=== PATIENT | male | born 1955 | race Caucasian/White ===

== ENCOUNTER 2020-10-02 08:46 | Outpatient (CLI) | payer MEDICARE, SELFPAY ==
[2020-10-02 09:16] LABS: Hematocrit 48.7 % (42.0-52.0); Hemoglobin 16.6 g/dL (14.0-18.0); Mean Corpuscular HGB Conc 34.1 g/dl (32-36); Mean Corpuscular Hemoglobin 30.5 pg (26-34); Mean Corpuscular Volume 89.5 fl (80-100); Mean Platelet Volume 9.2 fl (7.4-10.4); Platelet Count Result 250 k/mm3 (150-375); Red Blood Count 5.44 M/mm3 (4.6-6.20); Red Cell Distribution Width 11.9 % (11.5-14.5); White Blood Count 7.4 K/mm3 (4.5-10.0)
[2020-10-02 09:39] LABS: Alanine Aminotransferase 33 U/L (4-50); Albumin Level 4.4 g/dL (3.5-5.1); Alkaline Phosphatase 77 U/L (38-126); Anion Gap 7 mmol/L (8-16); Aspartate Amino Transferase 37 U/L (17-59); Bilirubin,Total 0.8 mg/dL (0.2-1.3); Blood Urea Nitrogen 17 mg/dL (9-20); Calcium 9.7 mg/dL (8.4-10.2); Carbon Dioxide 35 mmol/L (22-30); Chloride 101 mmol/L (98-107); Estimated Glomerular Filt Rate > 60; Glucose 100 mg/dL (75-110); Potassium 4.2 mmol/L (3.4-5.0); Sodium 143 mmol/L (137-145)
[2020-10-02 10:41] LABS: Folic Acid > 20.0 ng/mL (2.76->20)
== END 2020-10-02 08:47 | disposition home or self-care (01) ==
LOC: ANHLAB 08:49
PROVIDERS: PCP Internal Medicine; Visit Provider Internal Medicine
DX: R53.83 Other fatigue (principal); E53.8 Deficiency of other specified B group vitamins; E78.00 Pure hypercholesterolemia, unspecified; Z12.5 Encounter for screening for malignant neoplasm of prostate
CPT/HCPCS: 36415; 80053; 82607; 82746; 84443; 85027

== ENCOUNTER 2021-10-08 09:38 | Outpatient (CLI) | payer MEDICARE, SELFPAY ==
[2021-10-08 10:12] LABS: Basophils Absolute Auto 0.1 K/mm3 (0.0-0.1); Basophils Percent Auto 0.8 % (0.2-1.2); Eosinophils Absolute Auto 0.2 K/mm3 (0-0.3); Eosinophils Percent Auto 3.3 % (0-4.4); Hematocrit 49.3 % (42.0-52.0); Hemoglobin 16.7 g/dL (14.0-18.0); Immature Granulocyte Absolute 0.03 K/mm3 (0.00-0.031); Immature Granulocyte Percent A 0.5 % (0-0.5); Lymphocytes Absolute Auto 1.94 K/mm3 (0.9-3.2); Lymphocytes Percent Auto 30.7 % (18.3-44.2); Mean Corpuscular HGB Conc 33.9 g/dl (32-36); Mean Corpuscular Hemoglobin 30.9 pg (26-34); Mean Corpuscular Volume 91.1 fl (80-100); Mean Platelet Volume 9.1 fl (7.4-10.4); Monocytes Absolute Auto 0.4 K/mm3 (0.1-0.6); Monocytes Percent Auto 6.7 % (2.6-8.5); Neutrophils Absolute Auto 3.7 K/mm3 (1.3-6.7); Platelet Count Result 238 k/mm3 (150-375); Red Blood Count 5.41 M/mm3 (4.6-6.20); Red Cell Distribution Width 12.1 % (11.5-14.5); White Blood Count 6.3 K/mm3 (4.5-10.0)
[2021-10-08 10:28] LABS: Alanine Aminotransferase 23 U/L (4-50); Albumin Level 4.6 g/dL (3.5-5.1); Alkaline Phosphatase 89 U/L (38-126); Anion Gap 8 mmol/L (8-16); Aspartate Amino Transferase 23 U/L (17-59); Bilirubin,Total 0.5 mg/dL (0.2-1.3); Blood Urea Nitrogen 12 mg/dL (9-20); Calcium 9.5 mg/dL (8.4-10.2); Carbon Dioxide 31 mmol/L (22-30); Chloride 104 mmol/L (98-107); Cholesterol 155 mg/dL (0-200); Estimated Glomerular Filt Rate > 60; Glucose 109 mg/dL (65-110); HDL Direct 44 mg/dL; Potassium 3.7 mmol/L (3.4-5.0); Sodium 143 mmol/L (137-145); Triglycerides 81 mg/dL (<150)
[2021-10-08 10:40] LABS: Hemoglobin A1C 5.5 % (<5.7); LDL Cholesterol Direct 100 mg/dL
[2021-10-08 11:33] LABS: Folic Acid 12.7 ng/mL (2.76->20)
== END 2021-10-08 09:39 | disposition home or self-care (01) ==
PROVIDERS: PCP Internal Medicine; Visit Provider Internal Medicine
DX: R53.83 Other fatigue (principal); R73.9 Hyperglycemia, unspecified; Z12.5 Encounter for screening for malignant neoplasm of prostate; E78.00 Pure hypercholesterolemia, unspecified
CPT/HCPCS: 36415; 80053; 80061; 82607; 82746; 83036; 84153; 84443; 85025; G0103

== ENCOUNTER 2021-10-29 12:48 | Outpatient (CLI) | payer MEDICARE, SELFPAY ==
--- NOTE | ~2021-10-29 | CT_ITS ---
EXAMINATION: CT lung screening DATE: 10/29/2021 13:04 INDICATION: Personal history of nicotine dependence TECHNIQUE: Computed tomography (CT) of the chest was performed without intravenous contrast. The dose -length product was 94.16 mGy-cm. Automated exposure control and iterative reconstruction technique w ere employed. COMPARISON: CT dated 02/02/2018 FINDINGS: There is evidence for chronic granulomatous disease of the mediastinum, samantha, lung parenchy ma, liver and spleen. Heart size normal. No thoracic lymphadenopathy. No significant pleural or peric ardial effusion. Mild emphysema. There is a 2 mm left upper lobe nodule, not clearly calcified, image 37 there is a 4 mm lingular nodule, image 68, unchanged. There is a 3 mm left lower lobe nodule, daya ge 70. No focal consolidation. No endobronchial lesions. No pneumothorax. Mild thoracic spondylosis w ith accentuated kyphosis. IMPRESSION: 1. Lung-RADS category 2: Benign appearance or behavior. Continue annual screening with noncontrast lo w-dose chest CT in 12 months. Reviewed, dictated and finalized at location B. TER COACH DRIVER IMPRESSION: 1. Lung-RADS category 2: Benign appearance or behavior. Continue annual screeni ng with noncontrast low-dose chest CT in 12 months.
== END 2021-10-29 12:49 | disposition home or self-care (01) ==
PROVIDERS: PCP Internal Medicine; Visit Provider Internal Medicine
DX: Z87.891 Personal history of nicotine dependence (principal)
CPT/HCPCS: 71271

== ENCOUNTER 2022-01-15 23:10 | Emergency (ER) | payer MEDICARE, SELFPAY ==
--- NOTE | ~2022-01-15 | XR_ITS ---
EXAMINATION: XR chest 2V DATE: 01/15/2022 23:56 INDICATION: Left rib pain. Fall. TECHNIQUE: Frontal and lateral views of the chest were obtained. COMPARISON: Chest 2 views 06/25/2019, CT abdomen and pelvis 01/16/2022 FINDINGS: Calcified pulmonary nodules and calcified hilar lymph nodes are consistent with old granulo mas disc disease. No pleural effusion or pneumothorax. The heart size is normal. There are old healed left rib fractures. There are surgical clips in left axilla. IMPRESSION: 1. No acute cardiopulmonary disease. Reviewed, dictated and finalized at location A.
--- NOTE | ~2022-01-15 | CT_ITS ---
EXAMINATION: CT abdomen pelvis w con DATE: 01/16/2022 00:46 INDICATION: Left abdominal ecchymosis. Fall 17 days ago. TECHNIQUE: Computed tomography (CT) of the abdomen and pelvis was performed with 100 mL Omnipaque 350 intravenous contrast. Automated exposure control and iterative reconstruction technique were employe d. The dose-length product was 549.55 mGy-cm. COMPARISON: Chest CT 10/29/2021 FINDINGS: The visualized portions of the lung bases demonstrate calcified pulmonary nodules and calci fied hilar lymph nodes, consistent with old granulomatous disease. No pleural effusion. The heart siz e is normal. There are coronary artery calcifications. No pericardial effusion. Calcifications in the liver and spleen are consistent with old granulomatous disease. The gallbladder, spleen, and pancrea s are normal. There is cortical thinning of the kidneys. There is a 1.8 cm cyst in right kidney. The prostate is mildly enlarged. There is diverticulosis of the colon without evidence of diverticulitis. The appendix is normal. There are no pathologically enlarged lymph nodes. There is no free intraperi toneal fluid. There is fat stranding in the left abdominal wall and anterior pelvis and scrotum. Part ially visualized are healing left rib fractures. Partially visualized is hematoma in left chest wall. There is mild lumbar spondylosis. IMPRESSION: 1. Healing left rib fractures. Partially visualized hematoma in left chest wall. 2. Fat stranding in the left abdominal wall and anterior pelvis and scrotum, likely hematoma and infl ammation. Reviewed, dictated and finalized at location A. IMPRESSION: 1. Healing left rib fractures. Partially visualized hematoma in left chest wall . 2. Fat stranding in the left abdominal wall and anterior pelvis and scrotum, li jacob hematoma and inflammation.
[2022-01-15 23:30] VITALS: BP 150/80; PULSE 71; RESP 16; TEMP 36.2; O2SAT 95
--- NOTE | 2022-01-15 23:31 | ED.FALL ---
HPI - Fall General Chief Complaint: Fall <KWAKU Lee Last Filed: 01/16/22 03:31> Stated Complaint: fall I think I hurt my spleen <KWAKU Lee Last Filed: 01/16/22 03:31> Time Seen by Provider: 01/15/22 23:17 <KWAKU Lee Last Filed: 01/16/22 03:31> History of Present Illness HPI Narrative: Patient is a 66-year-old male with a history of COPD who presents for evaluation of bruising along the left side of his abdomen and in his scrotum. Patient states he fell down the stairs about 2 weeks ago and struck the left side of ribs along the door. No head injury or loss of consciousness. He called EMS but declined coming to the hospital at that time. He states the rib pain has been persistent since the fall, but he denies any abdominal pain, nausea, vomiting, lightheadedness, repeated falls. He has been treating his rib pain with ibuprofen, but 3 days ago he developed some bruising along the left side of his abdomen. He states the bruising has progressed in severity since onset and now extends along the left side of his abdomen into his scrotum. No blood thinner use or blood in his stool. <KWAKU Lee Last Filed: 01/16/22 03:31> Related Data Home Medications: Home Medications Medication Instructions Recorded Confirmed vit A 300 mcg-C 200 mg-E 27 1 tablet PO DAILY 08/10/19 10/20/21 mg-lutein 2 mg and minerals tablet multivit with min-folic 1 tablet PO DAILY 08/14/1918 acid-lutein 400 mcg-250 mcg chewable tablet <WKAKU Lee Last Filed: 01/16/22 03:31> Allergies/Adverse Reactions: Allergies Allergy/AdvReac Type Severity Reaction Status Date / Time codeine AdvReac Mild Nausea and Verified 01/16/22 01:27 Vomiting METHIALATE Allergy Severe RASH Uncoded 01/16/22 01:27 <KWAKU Lee Last Filed: 01/16/22 03:31> [facility] Family History Family History: Family History Father Patient's father is Mother Acute myocardial infarction <Awa Hardy PA-C - Last Filed: 01/16/22 03:31> Social History Social History: Social History Smoking packs per day: 0.25 Smoking cigarettes per day: 5.0 Smoking status: Current every day smoker Second hand tobacco smoke exposure: No Smoking end date: 10/03/18 Alcohol intake: never Substance use: never <Awa Hardy PA-C - Last Filed: 01/16/22 03:31> Exam Narrative: APPEARANCE: Well appearing, no pain in distress, well-nourished. Head normocephalic and atraumatic. EYES: PERRLA/EOMI, conjunctivae clear NOSE: No nasal drainage EARS: External ear normal in appearance THROAT: Oropharynx is clear. Mucous membranes are moist. NECK: Supple. No adenopathy, no masses. RESPIRATORY: Expiratory wheezes throughout. airway patent, respirations nonlabored. Clear to auscultation bilaterally, no rales, rhonchi, wheezing. CARDIOVASCULAR: Regular rate and rhythm without murmurs, rubs, or gallops. ABDOMINAL: Normoactive bowel sounds. Soft, nontender, nondistended. No rebound tenderness or guarding. MUSCULOSKELETAL: Extremities are warm and well-perfused. Moves all extremities well. No edema. NEURO: Normal speech. No focal neurologic deficits. SKIN: Large area of dark ecchymosis along left side of abdomen extending from left chest under nipple into scrotum. Scrotum is entirely purple. Skin is warm and dry. No rashes. PSYCHIATRIC: Normal affect/mood. <Awa Hardy PA-C - Last Filed: 01/16/22 03:31> Course PRODUCE TEAM MEMBER/PA Physician Supervision Patient was seen and evaluated by me. 2 weeks or so ago the patient had a fall at home landing on his left posterior chest area. Paramedics came out and evaluated him he elected not to come to the hospital at that time. Over the last s
[2022-01-16 00:13] LABS: Basophils Absolute Auto 0.1 K/mm3 (0.0-0.1); Basophils Percent Auto 0.6 % (0.2-1.2); Eosinophils Absolute Auto 0.4 K/mm3 (0-0.3); Eosinophils Percent Auto 4.5 % (0-4.4); Hematocrit 41.4 % (42.0-52.0); Hemoglobin 13.8 g/dL (14.0-18.0); Immature Granulocyte Absolute 0.03 K/mm3 (0.00-0.031); Immature Granulocyte Percent A 0.4 % (0-0.5); Lymphocytes Absolute Auto 1.85 K/mm3 (0.9-3.2); Lymphocytes Percent Auto 23.7 % (18.3-44.2); Mean Corpuscular HGB Conc 33.3 g/dl (32-36); Mean Corpuscular Hemoglobin 30.7 pg (26-34); Mean Corpuscular Volume 92.2 fl (80-100); Mean Platelet Volume 9.6 fl (7.4-10.4); Monocytes Absolute Auto 0.6 K/mm3 (0.1-0.6); Monocytes Percent Auto 7.5 % (2.6-8.5); Neutrophils Percent Auto 63.3 % (45.5-73.1); Platelet Count Result 264 k/mm3 (150-375); Red Blood Count 4.49 M/mm3 (4.6-6.20); Red Cell Distribution Width 12.2 % (11.5-14.5); White Blood Count 7.8 K/mm3 (4.5-10.0)
[2022-01-16 00:22] LABS: Alanine Aminotransferase 14 U/L (4-50); Alkaline Phosphatase 95 U/L (38-126); Anion Gap 5 mmol/L (8-16); Aspartate Amino Transferase 24 U/L (17-59); Bilirubin,Total 0.6 mg/dL (0.2-1.3); Blood Urea Nitrogen 17 mg/dL (9-20); Calcium 8.8 mg/dL (8.4-10.2); Carbon Dioxide 30 mmol/L (22-30); Chloride 104 mmol/L (98-107); Estimated CRCL calculation 70 ml/min; Estimated Glomerular Filt Rate > 60; Glucose 110 mg/dL (65-110); Sodium 139 mmol/L (137-145)
[2022-01-16 00:23] LABS: INR 1.1; Prothrombin Time 13.6 Seconds (11.1-14.7)
[2022-01-16 00:24] LABS: Partial Thromboplastin Time 29.1 SECONDS (22.3-36.8)
[2022-01-16] MEDS: LIDOCAINE 5% PATCH 1 PATCH TRANSDERM (01:31)
[2022-01-16] MEDS: MORPHINE SULFATE (*CRX) 2 MG/ML INJ IV PUSH (01:33)
== END 2022-01-16 02:30 | disposition home or self-care (01) ==
PROVIDERS: Physician Assistant; Emergency Provider Emergency Medicine; PCP Internal Medicine
DX: S30.1XXA Contusion of abdominal wall, initial encounter (principal); Z87.891 Personal history of nicotine dependence; W10.9XXA Fall (on) (from) unspecified stairs and steps, initial encounter
CPT/HCPCS: 36415; 71046; 74177; 80053; 85025; 85610; 85730; 96374; 99284; A9270; J2270; Q9967

== ENCOUNTER 2022-10-21 10:19 | Outpatient (CLI) | payer MEDICARE, SELFPAY ==
[2022-10-21 10:31] LABS: Basophils Absolute Auto 0.1 K/mm3 (0.0-0.1); Basophils Percent Auto 0.7 % (0.2-1.2); Eosinophils Absolute Auto 0.3 K/mm3 (0-0.3); Eosinophils Percent Auto 3.8 % (0-4.4); Hematocrit 48.4 % (42.0-52.0); Hemoglobin 16.5 g/dL (14.0-18.0); Immature Granulocyte Absolute 0.02 K/mm3 (0.00-0.031); Immature Granulocyte Percent A 0.3 % (0-0.5); Lymphocytes Absolute Auto 2.03 K/mm3 (0.9-3.2); Lymphocytes Percent Auto 28.5 % (18.3-44.2); Mean Corpuscular HGB Conc 34.1 g/dl (32-36); Mean Corpuscular Hemoglobin 30.6 pg (26-34); Mean Corpuscular Volume 89.8 fl (80-100); Mean Platelet Volume 9.2 fl (7.4-10.4); Monocytes Absolute Auto 0.5 K/mm3 (0.1-0.6); Monocytes Percent Auto 6.5 % (2.6-8.5); Neutrophils Absolute Auto 4.3 K/mm3 (1.3-6.7); Neutrophils Percent Auto 60.2 % (45.5-73.1); Platelet Count Result 253 k/mm3 (150-375); Red Blood Count 5.39 M/mm3 (4.6-6.20); Red Cell Distribution Width 11.9 % (11.5-14.5); White Blood Count 7.1 K/mm3 (4.5-10.0)
[2022-10-21 10:55] LABS: Alanine Aminotransferase 24 U/L (6-50); Albumin Level 4.5 g/dL (3.5-5.1); Alkaline Phosphatase 86 U/L (38-126); Anion Gap 6 mmol/L (8-16); Aspartate Amino Transferase 26 U/L (17-59); Bilirubin,Total 0.6 mg/dL (0.2-1.3); Blood Urea Nitrogen 11 mg/dL (9-20); Calcium 9.3 mg/dL (8.4-10.2); Carbon Dioxide 31 mmol/L (22-30); Chloride 106 mmol/L (98-107); Cholesterol 139 mg/dL (0-200); Estimated Glomerular Filt Rate > 60; Glucose 111 mg/dL (65-110); HDL Direct 43 mg/dL; Potassium 3.9 mmol/L (3.4-5.0); Sodium 143 mmol/L (137-145); Triglycerides 73 mg/dL (<150)
[2022-10-21 11:06] LABS: LDL Cholesterol Direct 77 mg/dL
[2022-10-21 11:26] LABS: Prostate Specific Antigen 3.5 ng/mL (< OR = 4.0)
[2022-10-21 12:01] LABS: Folic Acid 17.9 ng/mL (2.76->20)
== END 2022-10-21 10:20 | disposition home or self-care (01) ==
LOC: ANHLAB 10:21
PROVIDERS: PCP Internal Medicine; Visit Provider Internal Medicine
DX: E78.00 Pure hypercholesterolemia, unspecified (principal); I10 Essential (primary) hypertension; E53.8 Deficiency of other specified B group vitamins; R73.9 Hyperglycemia, unspecified; Z12.5 Encounter for screening for malignant neoplasm of prostate
CPT/HCPCS: 36415; 80053; 80061; 82607; 82746; 84153; 84443; 85025; G0103

== ENCOUNTER 2022-11-01 12:44 | Outpatient (CLI) | payer MEDICARE, SELFPAY ==
--- NOTE | ~2022-11-01 | CT_ITS ---
EXAMINATION: CT lung screening DATE: 11/01/2022 13:04 INDICATION: Personal history of nicotine dependence, current smoker with 30 pack year history TECHNIQUE: Computed tomography (CT) of the chest was performed without intravenous contrast. The dose -length product (DLP) was 91.89 mGy-cm. Automated exposure control and iterative reconstruction techn alive.cnue were employed. COMPARISON: 10/29/2021 FINDINGS: There is mild emphysema. There is a stable 4 mm nodule of the lingula. No new pulmonary nod ules are identified. The lungs are free of acute opacities. No pleural effusion or pneumothorax. No p athologically enlarged thoracic lymph nodes are identified. The heart size is normal. Calcified pulmo nary nodules and calcified bilateral hilar and mediastinal lymph nodes are consistent with old granul omatous disease. Mild bilateral gynecomastia is noted. Punctate calcifications in otherwise normal ap pearing liver and spleen likely represent healed granulomatous disease. There are areas of cortical s carring of the kidneys. There is moderate thoracic spondylosis. IMPRESSION: 1. Lung-RADS category 2: Benign appearance or behavior. Continue annual screening with noncontrast lo w-dose chest CT in 12 months. Reviewed, dictated and finalized at location B. ICATIONS ENGINEER IMPRESSION: 1. Lung-RADS category 2: Benign appearance or behavior. Continue annual screeni ng with noncontrast low-dose chest CT in 12 months.
== END 2022-11-01 12:45 | disposition home or self-care (01) ==
PROVIDERS: PCP Internal Medicine; Visit Provider Internal Medicine
DX: Z12.2 Encounter for screening for malignant neoplasm of respiratory organs (principal); F17.210 Nicotine dependence, cigarettes, uncomplicated
CPT/HCPCS: 71271

== ENCOUNTER 2022-11-23 11:04 | Emergency (ER) | payer MEDICARE, SELFPAY ==
[2022-11-23] VITALS (12 sets, daily range): BP systolic 136–174; BP diastolic 70–107; PULSE 89–109; RESP 15–32; TEMP 36.5; O2SAT 91–100
--- NOTE | ~2022-11-23 | XR_ITS ---
Clinical Indication: Shortness of breath PA and lateral views of the chest: Comparison: 01/15/2022 Findings: The lungs are clear, without evidence of focal consolidation or pleural effusion. Suspected COPD. Cardiomediastinal silhouette is within normal limits. Chronic rib fracture deformities are not ed on the left side. Impression: Suspected COPD. Chronic rib fracture deformities on the left side. Reviewed, dictated and finalized at location . 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 Chronic rib fracture deformities on the left side.
--- NOTE | 2022-11-23 11:13 | ECG_ITS ---
Measurements Intervals [place] Rate: 94 P: 251 CA: 104 QRS: -66 QRSD: 91 T: 76 QT: 317 QTc: 398 Interpretive Statements ECTOPIC ATRIAL RHYTHM MARKED LEFT AXIS DEVIATION [QRS AXIS < -30] ANTEROSEPTAL MYOCARDIAL INFARCTION , OF INDETERMINATE AGE [40+ ms Q WAVE IN V1-V4] ABNORMAL ECG NO PREVIOUS ECG AVAILABLE FOR COMPARISON Electronically Signed On 11-23-2022 14:15:57 QA TEST ANALYST by Gregorio Everett M.D.
[2022-11-23 11:57] LABS: Basophils Percent Auto 0.2 % (0.2-1.2); Eosinophils Percent Auto 0.2 % (0-4.4); Hematocrit 46.6 % (42.0-52.0); Hemoglobin 15.9 g/dL (14.0-18.0); Immature Granulocyte Absolute 0.08 K/mm3 (0.00-0.031); Immature Granulocyte Percent A 0.5 % (0-0.5); Lymphocytes Absolute Auto 1.18 K/mm3 (0.9-3.2); Lymphocytes Percent Auto 7.6 % (18.3-44.2); Mean Corpuscular HGB Conc 34.1 g/dl (32-36); Mean Corpuscular Hemoglobin 30.8 pg (26-34); Mean Corpuscular Volume 90.1 fl (80-100); Monocytes Absolute Auto 1.1 K/mm3 (0.1-0.6); Monocytes Percent Auto 6.8 % (2.6-8.5); Neutrophils Absolute Auto 13.2 K/mm3 (1.3-6.7); Neutrophils Percent Auto 84.7 % (45.5-73.1); Platelet Count Result 214 k/mm3 (150-375); Red Blood Count 5.17 M/mm3 (4.6-6.20); Red Cell Distribution Width 11.9 % (11.5-14.5); White Blood Count 15.6 K/mm3 (4.5-10.0)
[2022-11-23 12:07] LABS: Alanine Aminotransferase 23 U/L (6-50); Albumin Level 4.8 g/dL (3.5-5.1); Alkaline Phosphatase 110 U/L (38-126); Anion Gap 9 mmol/L (8-16); Aspartate Amino Transferase 26 U/L (17-59); Bilirubin,Total 1.1 mg/dL (0.2-1.3); Blood Urea Nitrogen 12 mg/dL (9-20); Calcium 9.3 mg/dL (8.4-10.2); Carbon Dioxide 29 mmol/L (22-30); Chloride 102 mmol/L (98-107); Estimated CRCL calculation 79 ml/min; Estimated Glomerular Filt Rate > 60; Glucose 118 mg/dL (65-110); Potassium 4.1 mmol/L (3.4-5.0); Sodium 140 mmol/L (137-145)
--- NOTE | 2022-11-23 12:26 | ED.SOB ---
HPI - SOB/Dyspnea General Chief Complaint: Shortness of Breath/Dyspnea Stated Complaint: shortness of breath, COPD Time Seen by Provider: 11/23/22 12:15 Source: patient and family Mode of arrival: ambulatory Limitations: no limitations History of Present Illness HPI Narrative: 67 years old white male presented to the ED with gradual increase shortness of breath over the last few days it got worse 3 days ago with temperature 100.4, coughing and nasal and postnasal discharge. Patient is fully vaccinated for COVID, history of hyperlipidemia and tobacco dependence, history of COPD not on any medications. Patient does not take oxygen at home. He denies sick contact. Related Data Home Medications Medication Instructions Recorded Confirmed vit A 300 mcg-C 200 mg-E 27 1 tablet PO DAILY 08/10/19 10/20/21 mg-lutein 2 mg and minerals tablet (Ocuvite with Lutein) multivit with min-folic 1 tablet PO DAILY 08/14/19 10/20/21 acid-lutein 400 mcg-250 mcg chewable tablet (Centrum Silver) Allergies Allergy/AdvReac Type Severity Reaction Status Date / Time codeine AdvReac Mild Nausea and Verified 06/01/22 10:21 Vomiting METHIALATE Allergy Severe RASH Uncoded 06/01/22 10:21 Review of Systems Review of Systems: All systems reviewed & are unremarkable except as noted in HPI and below PMFSH Family History Family History Father Patient's father is Mother Acute myocardial infarction Social History Social History Smoking packs per day: 1 Smoking cigarettes per day: 20.0 Years smoked: 40 Smoking pack-years: 40.00 Smoking status: Former smoker Second hand tobacco smoke exposure: No Smoking end date: 10/03/18 Alcohol intake: never Substance use: never Exam Narrative: General appearance: Well-developed, well-nourished Skin: Normal color Head: Normocephalic, nontraumatic Eyes: Clear conjunctiva ENT: Oropharynx normal, ears normal, nose normal Neck: Supple, nontender Chest and respiratory: Diffuse diminution of air entry bilaterally, fine wheezing expiratory bilaterally Heart: Regular rate/rhythm Abdomen: Soft, nontender, no organomegaly, quiet bowel sounds Vascular: Normal peripheral pulses, normal capillary refill. 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 Date: 11/23/22 Time: 14:06 Vital Signs Vital signs: Vital Signs Temperature 36.5 C 11/23/22 11:15 Pulse Rate 98 11/23/22 11:15 Respiratory Rate 32 H 11/23/22 11:15 Blood Pressure 144/70 H 11/23/22 11:15 Pulse Oximetry 92 11/23/22 11:15 Oxygen Delivery Room Air 11/23/22 11:15 Temperature 36.5 C 11/23/22 11:15 Pulse Rate 95 11/23/22 13:03 Respiratory Rate 25 H 11/23/22 13:03 Blood Pressure 148/88 H 11/23/22 13:03 Pulse Oximetry 93 11/23/22 13:03 Oxygen Delivery Room Air 11/23/22 11:58 MDM - SOB/Dyspnea MDM Narrative Medical decision making narrative: Patient is 67 years old white male presents with shortness of breath over the last 3 days, history of COPD not on any medications. Patient presents with runny nose, nasal congestion and nasal and postnasal discharge as well. COPD exacerbation secondary to upper respiratory viral infection is my concern. Patient still a smoker. Physical examination showed diffuse expiratory wheezing bilaterally with examination o
[2022-11-23 12:57] LABS: Alveolar/Arterial O2 Gradient 48.8 mmHg; Base Excess ABG 0.1 mEq/l (+/-2.0); Fractional Inspired Oxygen 21 %; HCO3 ABG 25.3 mEq/l (22.0-26.0); Oxygen Content ABG 19.4 %vol (16.0-22.0); PCO2 ABG 42.9 mmHg (35.0-45.0); PO2 FiO2 Ratio Arterial Blood 2.36 %; Total Hemoglobin 16.4 g/dL (12.0-18.0); pH ABG 7.389 (7.350-7.450)
[2022-11-23 13:01] LABS: NT Pro B Type Natriuretic Pept 54 pg/mL (19.9-100)
[2022-11-23 13:02] LABS: Oxygen Saturation ABG 84.7 % (95.0-100.0); PO2 ABG 49.6 mmHg (80.0-100.0)
[2022-11-23 13:03] LABS: Device ROOM AIR; Modified Allen's Test Pass; Oxyhemoglobin 84.3 % THb (90.0-100.0); Site Drawn RIGHT RADIAL
[2022-11-23] MEDS: ALBUTEROL SULFATE NEB 2.5 MG/3 ML INH INHALATION ×3 (13:17→13:19)
[2022-11-23] MEDS: IPRATROPIUM BR 0.02% INH SOLN 0.5 MG/2.5 ML VIAL INHALATION (13:18)
[2022-11-23 13:25] LABS: Influenza A QL RT-PCR Negative (Negative); Influenza B QL RT-PCR Negative (Negative); RSV RNA, RT-PCR Negative (Negative); SARS-CoV-2 RNA PCR Negative
[2022-11-23] MEDS: methylPREDNISolone SOD SUCC 125 MG VIAL IV PUSH (13:34)
--- NOTE | 2022-11-24 13:21 | PC.NURSE ---
Pt. called wanting Rx for nebulizer medication since got the machine. Nothing in MD's dictation about medication Rx, unable to call in Rx for pt. Dr. Muse not available. Pt. directed to follow up with PMD.
== END 2022-11-23 15:02 | disposition home or self-care (01) ==
PROVIDERS: Emergency Medicine; Emergency Provider Emergency Medicine; PCP Internal Medicine
DX: J06.9 Acute upper respiratory infection, unspecified (principal); J44.9 Chronic obstructive pulmonary disease, unspecified; Z20.822 Contact with and (suspected) exposure to COVID-19; E78.5 Hyperlipidemia, unspecified; F17.210 Nicotine dependence, cigarettes, uncomplicated
CPT/HCPCS: 36415; 36600; 71046; 80053; 82805; 83880; 85025; 87637; 93005; 94640; 96374; 99284; J2930

== ENCOUNTER 2023-10-28 11:42 | Outpatient (CLI) | payer MEDICARE, SELFPAY ==
[2023-10-28 12:07] LABS: Basophils Percent Auto 0.4 % (0.2-1.2); Eosinophils Absolute Auto 0.3 K/mm3 (0-0.3); Eosinophils Percent Auto 3.6 % (0-4.4); Hemoglobin 16.6 g/dL (14.0-18.0); Immature Granulocyte Absolute 0.03 K/mm3 (0.00-0.031); Immature Granulocyte Percent A 0.4 % (0-0.5); Lymphocytes Absolute Auto 2.08 K/mm3 (0.9-3.2); Lymphocytes Percent Auto 26.4 % (18.3-44.2); Mean Corpuscular HGB Conc 33.9 g/dl (32-36); Mean Corpuscular Hemoglobin 30.7 pg (26-34); Mean Corpuscular Volume 90.7 fl (80-100); Mean Platelet Volume 9.3 fl (7.4-10.4); Monocytes Absolute Auto 0.5 K/mm3 (0.1-0.6); Monocytes Percent Auto 5.8 % (2.6-8.5); Neutrophils Percent Auto 63.4 % (45.5-73.1); Platelet Count Result 231 k/mm3 (150-375); Red Cell Distribution Width 12.2 % (11.5-14.5); White Blood Count 7.9 K/mm3 (4.5-10.0)
[2023-10-28 12:18] LABS: Alanine Aminotransferase 25 U/L (6-50); Albumin Level 4.3 g/dL (3.5-5.1); Alkaline Phosphatase 80 U/L (38-126); Anion Gap 5 mmol/L (8-16); Aspartate Amino Transferase 25 U/L (17-59); Bilirubin,Total 0.8 mg/dL (0.2-1.3); Blood Urea Nitrogen 17 mg/dL (9-20); Calcium 9.5 mg/dL (8.4-10.2); Carbon Dioxide 31 mmol/L (22-30); Chloride 105 mmol/L (98-107); Cholesterol 150 mg/dL (0-200); Estimated Glomerular Filt Rate > 60; Glucose 105 mg/dL (65-110); HDL Direct 41 mg/dL; Hemoglobin A1C 5.7 % (<5.7); Sodium 141 mmol/L (137-145); Triglycerides 88 mg/dL (<150)
[2023-10-28 12:29] LABS: LDL Cholesterol Direct 101 mg/dL
[2023-11-01 14:45] LABS: Red Blood Cell Folate 457 ng/mL RBC (>280)
== END 2023-10-28 11:43 | disposition home or self-care (01) ==
PROVIDERS: PCP Internal Medicine; Visit Provider Internal Medicine
DX: R73.9 Hyperglycemia, unspecified (principal); E53.8 Deficiency of other specified B group vitamins; R53.83 Other fatigue; E78.5 Hyperlipidemia, unspecified; U07.1 COVID-19; I10 Essential (primary) hypertension
CPT/HCPCS: 36415; 80053; 80061; 82747; 83036; 84443; 85025

== ENCOUNTER 2024-11-02 10:41 | Outpatient (CLI) | payer MEDICARE, SELFPAY ==
--- OUTSIDE RECORDS SUMMARY | 2024-11-02 10:46 | XMS_ITS | Clinical Summary ---
Author Organization [facility] Address [address] [place] [address]. [place], [place] [id number] [place] [id number] Care Team Providers Care American Sign Language Interpreter Name Role Phone Unavailable Primary Care Provider Unavailabl e Social History Tobacco Use Types Packs/Day Years Used Date Smoking Tobacco: Never Assessed Sex and Gender Information Value Date Recorded Sex Assigned at Not on file Legal Sex Male 7:13 PM CDT Gender Identity Not on file Sexual Orientation Not on file Plan of Treatment Health Maintenance Due Date Last Done Comments Colorectal Cancer Screening Colonoscopy (10 Years) 1954 Hepatitis C 1972 DTaP, Tdap and Td Vaccines ( 1 - Tdap) 1973 Zoster Vaccines (1 of 2) 2004 Pneumococcal Vaccine: 65+ Ye ars (1 of 1 - PCV) 2019 COVID-19 Vaccine ( - 2023-2 5 season) 2024 Influenza Adult (#1) 2024 RSV Immunization or 60+ Years (1 - 1-dose 75+ series) 2029 Meningococcal B Vaccine Aged Out No l onger eligible based on patient's age to complete this topic Meningococcal Vaccine Aged Out No izabella cynthia eligible based on patient's age to complete this topic RSV Immunizations Under 20 Months Aged Out No longer eligible based on patient's age to complete this topic
[2024-11-02 11:38] LABS: Alanine Aminotransferase 40 U/L (6-50); Albumin Level 4.3 g/dL (3.5-5.1); Alkaline Phosphatase 77 U/L (38-126); Anion Gap 7 mmol/L (4-12); Aspartate Amino Transferase 31 U/L (17-59); Bilirubin,Total 0.7 mg/dL (0.2-1.3); Blood Urea Nitrogen 17 mg/dL (9-20); Calcium 9.4 mg/dL (8.4-10.2); Carbon Dioxide 30 mmol/L (22-30); Chloride 104 mmol/L (98-107); Cholesterol 158 mg/dL (0-200); Estimated Glomerular Filt Rate > 60; Glucose 95 mg/dL (65-110); HDL Direct 47 mg/dL; Potassium 4.1 mmol/L (3.4-5.0); Sodium 141 mmol/L (137-145); Triglycerides 92 mg/dL (<150)
[2024-11-02 11:49] LABS: LDL Cholesterol Direct 101 mg/dL
[2024-11-02 12:05] LABS: Prostate Specific Antigen 4.2 ng/mL (< OR = 4.0)
[2024-11-02 12:24] LABS: Hemoglobin A1C 5.7 % (<5.7)
[2024-11-05 16:53] LABS: Red Blood Cell Folate 487 ng/mL RBC (>280)
== END 2024-11-02 10:42 | disposition home or self-care (01) ==
PROVIDERS: PCP Internal Medicine; Visit Provider Internal Medicine
DX: E53.8 Deficiency of other specified B group vitamins (principal); Z12.5 Encounter for screening for malignant neoplasm of prostate; I10 Essential (primary) hypertension; E78.5 Hyperlipidemia, unspecified; R73.9 Hyperglycemia, unspecified
CPT/HCPCS: 36415; 80053; 80061; 82747; 83036; 84153; G0103

== ENCOUNTER 2024-11-13 14:19 | Outpatient (CLI) | payer MEDICARE, SELFPAY ==
--- OUTSIDE RECORDS SUMMARY | 2024-11-13 15:09 | XMS_ITS | Clinical Summary ---
Author Organization [facility] Address [address] [place] [id number] Care Team Providers Care Community Health Counselor Name Role Phone Unavailable Primary Care Provider [...]
== END 2024-11-13 14:20 | disposition home or self-care (01) ==
LOC: ANHLAB 14:22
PROVIDERS: PCP Internal Medicine; Visit Provider Internal Medicine
DX: R41.3 Other amnesia (principal)
CPT/HCPCS: 36415; 82607; 84443

== ENCOUNTER 2025-05-21 12:01 | Outpatient (CLI) | payer MEDICARE, SELFPAY ==
[2025-05-21 12:37] LABS: Hemoglobin A1C 5.6 % (<5.7)
[2025-05-21 13:08] LABS: Prostate Specific Antigen 4.4 ng/mL (< OR = 4.0)
== END 2025-05-21 12:02 | disposition home or self-care (01) ==
PROVIDERS: PCP Internal Medicine; Visit Provider Internal Medicine
DX: R97.20 Elevated prostate specific antigen [PSA] (principal); R73.9 Hyperglycemia, unspecified
CPT/HCPCS: 36415; 83036; 84153

== ENCOUNTER 2025-06-04 10:43 | Outpatient (CLI) | payer MEDICARE, SELFPAY ==
--- OUTSIDE RECORDS SUMMARY | 2025-06-04 11:18 | XMS_ITS | Clinical Summary ---
Author Organization [facility] Address [address] [place] [id number] Care Team Providers Care Industrial Renderer Name Role Phone Unavailable Primary Care Provider [...] Td Vaccines ( 1 - Tdap) 1973 Pneumococcal Vaccine: 50+ Ye ars (1 of 1 - PCV) 2004 Zoster Vaccines (1 of 2) 2004 COVID-19 Vaccine ( - 2023-2 5 season) 2024 RSV Immunization or 60+ Years (1 [...]
== END 2025-06-04 10:44 | disposition home or self-care (01) ==
LOC: ANHAUDIO 10:44
PROVIDERS: PCP Internal Medicine; Visit Provider Internal Medicine
DX: H90.3 Sensorineural hearing loss, bilateral (principal)
CPT/HCPCS: 92557; 92567